=== PATIENT | male | born 1940 | race Caucasian/White ===

== ENCOUNTER 2017-04-08 00:09 | Emergency (ER) | payer OTHER ==
[~2017-04-08] VITALS: Ht 172.7 cm; Wt 84.4 kg
[2017-04-08] MEDS ORDERED: HYDROmorphone HCL 2 MG/ML VL IM ONE (06:15)
[2017-04-08] MEDS ORDERED: ONDANSETRON HCL 4 MG/2 ML VIAL IM ONE (06:30)
[2017-04-08 06:39] VITALS: BP 123/88
== END 2017-04-08 06:01 | disposition home or self-care (01) ==
LOC: EDBD 00:09 → ER 00:14
DX: S32.030A Wedge compression fracture of third lumbar vertebra, initial encounter for closed fracture (principal); S32.010A Wedge compression fracture of first lumbar vertebra, initial encounter for closed fracture; S33.5XXA Sprain of ligaments of lumbar spine, initial encounter; I48.91 Unspecified atrial fibrillation; I25.2 Old myocardial infarction; J44.9 Chronic obstructive pulmonary disease, unspecified; Z88.1 Allergy status to other antibiotic agents; G89.29 Other chronic pain; M54.9 Dorsalgia, unspecified; M79.1 Myalgia; X58.XXXA Exposure to other specified factors, initial encounter; Y93.89 Activity, other specified; Y92.89 Other specified places as the place of occurrence of the external cause; Y99.8 Other external cause status
CPT/HCPCS: 72131; 96372; 99284; J1170; J2405

== ENCOUNTER 2021-07-10 12:47 | Emergency (ER) | payer OTHER ==
[~2021-07-10] VITALS: Ht 180.3 cm; Wt 122.5 kg
[2021-07-10 12:58] VITALS: BP 136/76
[2021-07-10 14:23] LABS: Urine Bacteria NONE SEEN /hpf (None Seen); Urine Blood 3+ /uL (Negative); Urine Mucus FEW (None Seen); Urine Specific Gravity 1.024 (1.001-1.035); Urine WBC 9 /hpf (0 - 3)
== END 2021-07-10 17:55 | disposition home or self-care (01) ==
LOC: ER 12:47 → EDBD 12:47 → ER 17:10
DX: R33.9 Retention of urine, unspecified (principal); R31.9 Hematuria, unspecified; I48.91 Unspecified atrial fibrillation; J44.9 Chronic obstructive pulmonary disease, unspecified; E78.5 Hyperlipidemia, unspecified; I10 Essential (primary) hypertension; I25.2 Old myocardial infarction; Z90.49 Acquired absence of other specified parts of digestive tract; Z90.89 Acquired absence of other organs; Z88.2 Allergy status to sulfonamides
CPT/HCPCS: 51702; 81001; 93005